=== PATIENT | male | born 1940 | race Caucasian/White ===

== ENCOUNTER 2023-10-27 10:45 | Inpatient (IN) | payer OTHER, MEDICAID ==
[~2023-10-27] VITALS: Ht 167.6 cm; Wt 50.9 kg
[2023-10-27 10:59] VITALS: BP_SYST 109; PULSE 77; RESP 16; TEMP 97.4; O2SAT 96
[2023-10-27] MEDS: METOCLOPRAMIDE HCL 10 MG/2 ML VIAL IVP ONE (11:28)
[2023-10-27] MEDS: MECLIZINE HCL 25 MG TABLET (ANITVERT) PO ONE (11:28)
[2023-10-27 11:30] LABS: BASOPHILS # (AUTO) 0.1 K/uL (0.0-0.2); BASOPHILS % (AUTO) 0.6 % (0.0-2.0); EOSINOPHILS # (AUTO) 0.1 K/uL (0.0-0.4); EOSINOPHILS % (AUTO) 0.4 % (0.0-4.0); HEMATOCRIT 33.9 % (36-54); HEMOGLOBIN 11.6 g/dL (14.0-18.0); LYMPHOCYTES # (AUTO) 1.1 K/uL (1.0-5.5); LYMPHOCYTES % (AUTO) 7.4 % (20.5-51.5); MEAN CORPUSCULAR HEMOGLOBIN 29 pg (27-31); MEAN CORPUSCULAR HGB CONC 34 % (32-36); MEAN CORPUSCULAR VOLUME 85 fL (79.0-98.0); MONOCYTES # (AUTO) 0.7 K/uL (0.0-1.0); MONOCYTES % (AUTO) 4.4 % (1.7-9.3); NEUTROPHILS # (AUTO) 13.2 K/uL (1.8-7.7); NEUTROPHILS % (AUTO) 87.2 % (40.0-70.0); PLATELET COUNT (AUTO) 297 K/uL (130-430); RED BLOOD CELL COUNT(AUTO) 3.98 MIL/uL (4.2-6.2); RED CELL DISTRIBUTION WIDTH 15.5 % (9.0-15.0); WHITE BLOOD COUNT (AUTO) 15.1 K/uL (4.8-10.8)
[2023-10-27 11:50] LABS: PROTHROMBIN TIME 10.6 SECS (9.5-12.5)
[2023-10-27 11:53] LABS: ALBUMIN 3.3 g/dL (3.4-4.8); ANION GAP 10 (5-15); BILIRUBIN,DIRECT 0.2 mg/dL (0.0-0.3); CALCIUM 9.2 mg/dL (8.4-11.0); CARBON DIOXIDE 28 mmol/L (23-29); CHLORIDE 95 mmol/L (98-107); CREATINE KINASE, TOTAL 49 U/L (39-308); CREATININE 1.08 mg/dL (0.55-1.30); GLUCOSE 112 mg/dL (74-106); LIPASE 51 U/L (16-77); POTASSIUM 3.5 mmol/L (3.5-5.1); SODIUM SERUM 133 mmol/L (136-145); TOTAL BILIRUBIN 0.7 mg/dL (0.0-1.0); TOTAL PROTEIN, SERUM 7.7 g/dL (6.4-8.3); UREA NITROGEN, BLOOD 26 mg/dL (8-21)
[2023-10-27 12:08] LABS: ALANINE AMINOTRANSFERASE 10 U/L (12-78); ASPARTATE AMINOTRANSFERASE 5 U/L (10-37)
[2023-10-27 12:46] LABS: BILIRUBIN,URINE NEGATIVE (NEGATIVE); BLOOD, URINE NEGATIVE (NEGATIVE); CLARITY/URINE CLEAR (CLEAR); COLOR,URINE YELLOW (YELLOW); GLUCOSE,URINE NEGATIVE (NEGATIVE); KETONES,URINE NEGATIVE (NEGATIVE); LEUKOCYTE ESTERASE ,URINE NEGATIVE (NEGATIVE); NITRITE, URINE NEGATIVE (NEGATIVE); PROTEIN URINE NEGATIVE (NEGATIVE); UROBILINOGEN,URINE 0.2 (0.2-1.0)
[2023-10-27] MEDS: D5/0.45 NS 1,000 ML IV SCH (13:48)
[2023-10-27] MEDS ORDERED: TIMO5DRO18 BOTH EYES (14:13)
[2023-10-27] MEDS ORDERED: LEVO75TA7 PO (14:13)
[2023-10-27] MEDS ORDERED: FLUT1BLS5 INH (14:13)
[2023-10-27] MEDS ORDERED: BRIM10DR12 BOTH EYES (14:13)
[2023-10-27] MEDS ORDERED: ATOR40TA68 PO (14:13)
[2023-10-27] MEDS ORDERED: LATA2.5D14 BOTH EYES (14:13)
[2023-10-27] MEDS ORDERED: LISI1TAB55 PO (14:13)
[2023-10-27] MEDS ORDERED: AMLO5TAB92 (14:13)
[2023-10-27] MEDS ORDERED: OMEP40CA20 PO (14:13)
[2023-10-27 21:29] VITALS: BP_SYST 148; PULSE 75; RESP 20; TEMP 97.6; O2SAT 99
[2023-10-27 21:30] VITALS: BP_SYST 148; PULSE 75; RESP 20; TEMP 97.6; O2SAT 99
[2023-10-27] MEDS: PANTOPRAZOLE SODIUM 40 MG/VIAL (PROTONIX) IVP SCH (22:11)
[2023-10-28] VITALS (9 sets, daily range): BP systolic 125–141; PULSE 70–77; RESP 14–18; TEMP 97.4–98; O2SAT 97–100
[2023-10-28] MEDS ORDERED: NON-FORMULARY MEDICATION (Fluticasone/Umeclidin/Vilanter (Trelegy Ellipta 100-62.5-25) 1 P INH SCH (09:45)
[2023-10-28 10:32] LABS: BASOPHILS % (AUTO) 0.3 % (0.0-2.0); EOSINOPHILS # (AUTO) 0.2 K/uL (0.0-0.4); HEMATOCRIT 29.7 % (36-54); HEMOGLOBIN 10.5 g/dL (14.0-18.0); LYMPHOCYTES # (AUTO) 1.5 K/uL (1.0-5.5); LYMPHOCYTES % (AUTO) 18.3 % (20.5-51.5); MEAN CORPUSCULAR HEMOGLOBIN 30 pg (27-31); MEAN CORPUSCULAR HGB CONC 35 % (32-36); MEAN CORPUSCULAR VOLUME 84 fL (79.0-98.0); MONOCYTES # (AUTO) 0.7 K/uL (0.0-1.0); MONOCYTES % (AUTO) 8.4 % (1.7-9.3); NEUTROPHILS # (AUTO) 5.6 K/uL (1.8-7.7); PLATELET COUNT (AUTO) 231 K/uL (130-430); RED BLOOD CELL COUNT(AUTO) 3.53 MIL/uL (4.2-6.2); RED CELL DISTRIBUTION WIDTH 15.6 % (9.0-15.0); WHITE BLOOD COUNT (AUTO) 7.9 K/uL (4.8-10.8)
[2023-10-28 10:54] LABS: ANION GAP 9 (5-15); CALCIUM 8.3 mg/dL (8.4-11.0); CARBON DIOXIDE 27 mmol/L (23-29); CHLORIDE 98 mmol/L (98-107); CREATININE 0.94 mg/dL (0.55-1.30); GLUCOSE 117 mg/dL (74-106); POTASSIUM 3.4 mmol/L (3.5-5.1); SODIUM SERUM 134 mmol/L (136-145); UREA NITROGEN, BLOOD 10 mg/dL (8-21)
[2023-10-28] MEDS: AZITHROMYCIN 500 MG in NS 250 ML IV SCH (13:48)
[2023-10-28] MEDS: IPRATROPIUM/ALBUTEROL SULFATE 3 ML AMPUL.NEB (DUONEB) INH SCH (19:54)
[2023-10-28] MEDS: BUDESONIDE 0.5 MG/2 ML AMPUL.NEB INH SCH (19:54)
[2023-10-28] MEDS: LATANOPROST 2.5 ML DROPS (XALATAN) BOTH EYES SCH (21:00)
[2023-10-28] MEDS: TIMOLOL MALEATE 0.5% OPHTHALMIC DROPS 5 ML BOTH EYES SCH (21:37)
[2023-10-29] VITALS (10 sets, daily range): BP systolic 102–133; PULSE 62–77; RESP 17–20; TEMP 97.4–98; O2SAT 97–99
[2023-10-29 05:25] LABS: BASOPHILS % (AUTO) 0.3 % (0.0-2.0); EOSINOPHILS # (AUTO) 0.3 K/uL (0.0-0.4); EOSINOPHILS % (AUTO) 2.6 % (0.0-4.0); HEMATOCRIT 26.4 % (36-54); HEMOGLOBIN 9.2 g/dL (14.0-18.0); LYMPHOCYTES # (AUTO) 1.5 K/uL (1.0-5.5); LYMPHOCYTES % (AUTO) 15.5 % (20.5-51.5); MEAN CORPUSCULAR HEMOGLOBIN 30 pg (27-31); MEAN CORPUSCULAR HGB CONC 35 % (32-36); MEAN CORPUSCULAR VOLUME 84 fL (79.0-98.0); MONOCYTES # (AUTO) 0.8 K/uL (0.0-1.0); MONOCYTES % (AUTO) 8.2 % (1.7-9.3); NEUTROPHILS # (AUTO) 7.2 K/uL (1.8-7.7); NEUTROPHILS % (AUTO) 73.4 % (40.0-70.0); PLATELET COUNT (AUTO) 222 K/uL (130-430); RED BLOOD CELL COUNT(AUTO) 3.14 MIL/uL (4.2-6.2); RED CELL DISTRIBUTION WIDTH 15.3 % (9.0-15.0); WHITE BLOOD COUNT (AUTO) 9.8 K/uL (4.8-10.8)
[2023-10-29 05:26] LABS: ALANINE AMINOTRANSFERASE 5 U/L (12-78); ALBUMIN 2.5 g/dL (3.4-4.8); ANION GAP 10 (5-15); ASPARTATE AMINOTRANSFERASE < 5 U/L (10-37); CALCIUM 8.1 mg/dL (8.4-11.0); CARBON DIOXIDE 25 mmol/L (23-29); CHLORIDE 101 mmol/L (98-107); CREATININE 0.97 mg/dL (0.55-1.30); GLUCOSE 106 mg/dL (74-106); POTASSIUM 3.3 mmol/L (3.5-5.1); SODIUM SERUM 136 mmol/L (136-145); TOTAL BILIRUBIN 0.5 mg/dL (0.0-1.0); TOTAL PROTEIN, SERUM 6.1 g/dL (6.4-8.3); UREA NITROGEN, BLOOD 7 mg/dL (8-21)
[2023-10-29 05:41] LABS: ERYTHROCYTE SEDIMENTATION RATE 5 MM/HR (0-15)
[2023-10-29] MEDS: fentaNYL CITRATE/PF 100 MCG/2 ML AMP ONE (09:40)
[2023-10-29] MEDS: MIDAZOLAM HCL 5 MG/5 ML VIAL ONE (09:40)
[2023-10-29] MEDS: LEVOTHYROXINE SODIUM 0.075 MG TABLET PO ONE (12:46)
[2023-10-29] MEDS: ATORVASTATIN 20 MG TABLET PO ONE (12:46)
[2023-10-29] MEDS: amLODIPine BESYLATE 5 MG TABLET PO ONE (12:47)
[2023-10-29] MEDS ORDERED: BRIMONIDINE TARTRATE 0.15% 5 mL EYE DROPS BOTH EYES SCH (21:00)
[2023-10-29] MEDS: BRIMONIDINE TARTRATE 0.2% 5 mL EYE DROPS BOTH EYES SCH (21:13)
[2023-10-30] VITALS (10 sets, daily range): BP systolic 120–160; PULSE 69–89; RESP 16–18; TEMP 97.6–99.3; O2SAT 95–100
[2023-10-30 05:10] LABS: ERYTHROCYTE SEDIMENTATION RATE 11 MM/HR (0-15)
[2023-10-30 05:17] LABS: BASOPHILS % (AUTO) 0.4 % (0.0-2.0); EOSINOPHILS # (AUTO) 0.2 K/uL (0.0-0.4); EOSINOPHILS % (AUTO) 2.3 % (0.0-4.0); HEMATOCRIT 24.8 % (36-54); HEMOGLOBIN 8.6 g/dL (14.0-18.0); LYMPHOCYTES # (AUTO) 1.3 K/uL (1.0-5.5); LYMPHOCYTES % (AUTO) 17.1 % (20.5-51.5); MEAN CORPUSCULAR HEMOGLOBIN 30 pg (27-31); MEAN CORPUSCULAR HGB CONC 35 % (32-36); MEAN CORPUSCULAR VOLUME 86 fL (79.0-98.0); MONOCYTES # (AUTO) 0.7 K/uL (0.0-1.0); MONOCYTES % (AUTO) 8.9 % (1.7-9.3); NEUTROPHILS # (AUTO) 5.4 K/uL (1.8-7.7); NEUTROPHILS % (AUTO) 71.3 % (40.0-70.0); PLATELET COUNT (AUTO) 197 K/uL (130-430); RED CELL DISTRIBUTION WIDTH 15.9 % (9.0-15.0); WHITE BLOOD COUNT (AUTO) 7.6 K/uL (4.8-10.8)
[2023-10-30 05:44] LABS: ANION GAP 10 (5-15); CALCIUM 8.2 mg/dL (8.4-11.0); CARBON DIOXIDE 26 mmol/L (23-29); CHLORIDE 105 mmol/L (98-107); CREATININE 0.91 mg/dL (0.55-1.30); GLUCOSE 104 mg/dL (74-106); POTASSIUM 3.7 mmol/L (3.5-5.1); SODIUM SERUM 141 mmol/L (136-145); UREA NITROGEN, BLOOD 6 mg/dL (8-21)
[2023-10-30] MEDS: LEVOTHYROXINE SODIUM 0.075 MG TABLET PO SCH (07:08)
[2023-10-30] MEDS: ATORVASTATIN 20 MG TABLET PO SCH (09:49)
[2023-10-30] MEDS: lisinopriL 20 MG TABLET PO SCH (09:50)
[2023-10-30] MEDS: amLODIPine BESYLATE 5 MG TABLET PO SCH (09:50)
[2023-10-30] MEDS: HYDROCHLOROTHIAZIDE 12.5 MG CAPSULE (HCTZ) PO SCH (09:51)
[2023-10-31] VITALS (7 sets, daily range): BP systolic 127–150; PULSE 72–77; RESP 16–18; TEMP 97.2–98.8; O2SAT 95–100
[2023-10-31 04:39] LABS: BASOPHILS % (AUTO) 0.3 % (0.0-2.0); EOSINOPHILS # (AUTO) 0.3 K/uL (0.0-0.4); HEMATOCRIT 25.5 % (36-54); HEMOGLOBIN 8.9 g/dL (14.0-18.0); LYMPHOCYTES # (AUTO) 1.2 K/uL (1.0-5.5); LYMPHOCYTES % (AUTO) 16.6 % (20.5-51.5); MEAN CORPUSCULAR HEMOGLOBIN 30 pg (27-31); MEAN CORPUSCULAR HGB CONC 35 % (32-36); MEAN CORPUSCULAR VOLUME 85 fL (79.0-98.0); MONOCYTES # (AUTO) 0.6 K/uL (0.0-1.0); MONOCYTES % (AUTO) 8.4 % (1.7-9.3); NEUTROPHILS # (AUTO) 5.1 K/uL (1.8-7.7); NEUTROPHILS % (AUTO) 70.7 % (40.0-70.0); PLATELET COUNT (AUTO) 221 K/uL (130-430); RED BLOOD CELL COUNT(AUTO) 2.98 MIL/uL (4.2-6.2); RED CELL DISTRIBUTION WIDTH 15.9 % (9.0-15.0); WHITE BLOOD COUNT (AUTO) 7.3 K/uL (4.8-10.8)
[2023-10-31 04:52] LABS: ALBUMIN 2.6 g/dL (3.4-4.8); ANION GAP 11 (5-15); ASPARTATE AMINOTRANSFERASE 5 U/L (10-37); CALCIUM 8.5 mg/dL (8.4-11.0); CARBON DIOXIDE 26 mmol/L (23-29); CHLORIDE 101 mmol/L (98-107); CREATININE 0.92 mg/dL (0.55-1.30); GLUCOSE 110 mg/dL (74-106); PHOSPHORUS 3.3 mg/dL (2.7-4.5); POTASSIUM 3.2 mmol/L (3.5-5.1); SODIUM SERUM 138 mmol/L (136-145); TOTAL BILIRUBIN 0.5 mg/dL (0.0-1.0); TOTAL PROTEIN, SERUM 6.5 g/dL (6.4-8.3); UREA NITROGEN, BLOOD 5 mg/dL (8-21)
[2023-10-31 05:12] LABS: ERYTHROCYTE SEDIMENTATION RATE 11 MM/HR (0-15)
[2023-10-31] MEDS ORDERED: PRO40 PO (09:27)
[2023-10-31] MEDS ORDERED: APIX5TAB PO (09:27)
== END 2023-10-31 15:21 | disposition home health service (06) | DRG 377 ==
LOC: SED 10:45 → SMU 13:28 → STU 10-28 11:55 → SMU 10-30 15:27
PROVIDERS: ADMIT Preventive Medicine Preventive Medicine/Occupational Environmental Medicine; ATTEND Preventive Medicine Preventive Medicine/Occupational Environmental Medicine
PROC: 0DB98ZX Excision of Duodenum, Via Natural or Artificial Opening Endoscopic, Diagnostic (ICD-10-PCS; 2023-10-29)
PROC: 0DB68ZX Excision of Stomach, Via Natural or Artificial Opening Endoscopic, Diagnostic (ICD-10-PCS; principal; 2023-10-29 09:00)
DX: K29.71 Gastritis, unspecified, with bleeding (principal); E43 Unspecified severe protein-calorie malnutrition; J18.9 Pneumonia, unspecified organism; E87.1 Hypo-osmolality and hyponatremia; J44.0 Chronic obstructive pulmonary disease with (acute) lower respiratory infection; D62 Acute posthemorrhagic anemia; Z68.1 Body mass index [BMI] 19.9 or less, adult; E03.9 Hypothyroidism, unspecified; E78.5 Hyperlipidemia, unspecified; I48.91 Unspecified atrial fibrillation; I10 Essential (primary) hypertension; E88.09 Other disorders of plasma-protein metabolism, not elsewhere classified; E87.6 Hypokalemia; E83.51 Hypocalcemia; K44.9 Diaphragmatic hernia without obstruction or gangrene; Z85.46 Personal history of malignant neoplasm of prostate; Z90.79 Acquired absence of other genital organ(s); Z79.899 Other long term (current) drug therapy; R73.9 Hyperglycemia, unspecified
CPT/HCPCS: 36415; 43239; 70450-TC; 71045; 80048; 80053; 80076; 81001; 81003; 82550; 83605; 83690; 83735; 84100; 84484; 85025; 85610; 85651; 85730; 86738; 86886; 86900; 86901; 87040; 87081; 87449; 88305; 88312; 88313; 93005; 93306; 93880; 94070; 94640; 94760; 96374; 97110-GP; 97116-GP; 97530-GP; 99285; C9113; G0378; J0456; J0696; J2250; J2765; J3010; J7050; J7060; J7626; J8597